=== PATIENT | female | born 1985 | race Caucasian/White ===

== ENCOUNTER 2017-07-18 06:39 | Emergency (ER) | payer OTHER ==
[2017-07-18 07:07] LABS: Bilirubin Negative (Negative); Blood, Urine Negative (Negative); Clarity CLOUDY (Clear); Glucose, Urine (Dipstick) Negative (Negative); Leukocyte Negative (Negative); Nitrite Negative (Negative); Protein, Urine (Dipstick) Negative (Neg-Trace); Specific Gravity, Urine 1.027 (1.002-1.036); Urobilinogen 0.2 mg/dL (0.2-1.0)
[2017-07-18 07:12] LABS: Pregnancy Test - Urine (BHCG) Negative (Negative); Pregu Control Background? CLEAR/WHITE (CLR/WHITE); Pregu Control Bar Appear? YES (CONTROL BAR); Specific Gravity 1.027 (1.002-1.036)
[2017-07-18 07:24] LABS: #Eosinphils 0.1 thou/uL (0.0-0.7); #Lymphocytes 0.6 thou/uL (1.20-3.40); #Monocytes 0.3 thou/uL (0.11-0.59); #Neutrophils 11.3 thou/uL (1.40-6.50); %Basophils 0.2 % (0.0-1.0); %Eosinophils 0.5 % (0.0-10.0); %Lymphocytes 4.6 % (21.0-51.0); %Monocytes 2.2 % (0.0-10.0); %Neutrophils 92.6 % (42.0-75.0); Hemoglobin 14.4 g/dL (12.0-16.0); Mean Corpuscular HGB CONC 32.7 g/dL (32.0-36.0); Mean Corpuscular Hemoglobin 29.9 pg (27.0-31.0); Mean Corpuscular Volume 91.3 fl (81.0-99.0); Platelet Count 258 thou/uL (130-400); RBC Distribution Width 12.6 % (11.5-14.5); Red Blood Cell (RBC) Count 4.83 mill/uL (4.20-5.40); White Blood Cell (WBC) Count 12.2 thou/uL (4.8-10.8)
[2017-07-18 07:39] LABS: ALT (SGPT) 13 U/L (8-55); AST (SGOT) 16 U/L (5-34); Albumin 4.4 g/dL (3.5-5.0); Alkaline Phosphatase 86 U/L (40-150); Anion Gap 14 mmol/L (10-20); BUN (Urea Nitrogen) 15 mg/dL (7.0-18.7); Bilirubin, Total 0.8 mg/dL (0.2-1.2); Calc. Creatinine Clearance 0 mL/min (70-130); Calcium 9.4 mg/dL (7.8-10.44); Carbon Dioxide 18 mmol/L (22-29); Chloride 108 mmol/L (98-107); Estimated GFR-MDRD 79; Globulin 3.7 g/dL (2.4-3.5); Glucose 107 mg/dL (70-105); Lipase 18 U/L (8-78); Potassium 4.7 mmol/L (3.5-5.1); Protein, Total 8.1 g/dL (6.0-8.3); Sodium 135 mmol/L (136-145)
[2017-07-18] MEDS ORDERED: Ondansetron HCl/PF 4 MG/2 ML Vial ONE (09:12)
[2017-07-18] MEDS ORDERED: Ketorolac Tromethamine 30 MG/ML VIAL ONE (09:12)
--- NOTE | 2017-07-18 10:22 | ULT ---
EXAM: RIGHT UPPER QUADRANT ULTRASOUND: COMPARISON: 01/03/17. HISTORY: Right upper quadrant pain. Nausea. Vomiting. TECHNIQUE: Utilizing a multihertz transducer, sonographic imaging of the right upper quadrant was performed in a longitudinal and transverse plane. FINDINGS: Suboptimal evaluation of the pancreas due to bowel gas. Hepatic parenchyma has a normal echotexture. No hepatic masses or intrahepatic biliary dilatation. Contour of the hepatic margin is maintained. Right hepatic lobe measures 18 cm. Main portal vein is patent. Appropriate direction of flow. Common bile duct diameter is 0.3 cm. Visualized aorta has a normal caliber. No sonographic evidence of cholelithiasis, gallbladder wall thickening, or cholecystic fluid. Gallbl adder is slightly contracted likely due to nonfasting state. The right kidney has a normal cortical echotexture. There is mild renal cortical thinning. No hydro nephrosis. The right kidney measures 3.9 x 3.8 x 9.5 cm. IMPRESSION: No sonographic evidence of cholelithiasis or cholecystitis. If there is concern, consider HIDA scan. POS: [facility]
== END 2017-07-18 11:30 | disposition home or self-care (01) ==
LOC: ERS 06:39
DX: R10.13 Epigastric pain (principal); R11.2 Nausea with vomiting, unspecified; F32.9 Major depressive disorder, single episode, unspecified
CPT/HCPCS: 36415; 76705; 80053; 81003; 81025; 83690; 85025; 96361; 96374; 96375; J1885; J2405

== ENCOUNTER 2017-10-28 13:40 | Emergency (ER) | payer OTHER ==
[2017-10-28 14:39] LABS: #Lymphocytes 0.5 thou/uL (1.20-3.40); #Monocytes 0.2 thou/uL (0.11-0.59); #Neutrophils 12.8 thou/uL (1.40-6.50); %Basophils 0.1 % (0.0-1.0); %Eosinophils 0.2 % (0.0-10.0); %Lymphocytes 3.5 % (21.0-51.0); %Monocytes 1.6 % (0.0-10.0); %Neutrophils 94.7 % (42.0-75.0); Hemoglobin 15.3 g/dL (12.0-16.0); Mean Corpuscular HGB CONC 33.8 g/dL (32.0-36.0); Mean Corpuscular Hemoglobin 30.1 pg (27.0-31.0); Mean Corpuscular Volume 89.1 fl (81.0-99.0); Platelet Count 320 thou/uL (130-400); RBC Distribution Width 12.5 % (11.5-14.5); Red Blood Cell (RBC) Count 5.08 mill/uL (4.20-5.40); White Blood Cell (WBC) Count 13.5 thou/uL (4.8-10.8)
[2017-10-28 15:00] LABS: ALT (SGPT) 17 U/L (8-55); AST (SGOT) 15 U/L (5-34); Albumin 4.7 g/dL (3.5-5.0); Alkaline Phosphatase 91 U/L (40-150); Anion Gap 12 mmol/L (10-20); BUN (Urea Nitrogen) 15 mg/dL (7.0-18.7); Bilirubin, Total 0.8 mg/dL (0.2-1.2); Calc. Creatinine Clearance 0 mL/min (70-130); Calcium 9.7 mg/dL (7.8-10.44); Carbon Dioxide 26 mmol/L (22-29); Chloride 107 mmol/L (98-107); Estimated GFR-MDRD 67; Globulin 3.7 g/dL (2.4-3.5); Glucose 106 mg/dL (70-105); Protein, Total 8.4 g/dL (6.0-8.3); Sodium 141 mmol/L (136-145)
[2017-10-28] MEDS ORDERED: Ondansetron ODT 4 MG TAB ONE (15:58)
[2017-10-28 16:08] LABS: Bilirubin Negative (Negative); Blood, Urine Trace (Negative); Clarity TURBID (Clear); Glucose, Urine (Dipstick) Negative (Negative); Leukocyte Negative (Negative); Nitrite Negative (Negative); Protein, Urine (Dipstick) Trace mg/dL (Neg-Trace); Specific Gravity, Urine 1.031 (1.002-1.036); Urobilinogen 0.2 mg/dL (0.2-1.0); pH, Urine 5.5 (5.0-9.0)
[2017-10-28 16:09] LABS: Pregnancy Test - Urine (BHCG) Negative (Negative); Pregu Control Background? CLEAR/WHITE (CLR/WHITE); Pregu Control Bar Appear? YES (CONTROL BAR); Specific Gravity 1.031 (1.002-1.036)
[2017-10-28] MEDS ORDERED: Morphine 4 MG/ML VIAL ONE (16:09)
[2017-10-28 16:10] LABS: Bacteria/HPF None Seen HPF (None Seen); Hyaline Casts/LPF 0-3 HYALINE CAST LPF (0-3 Hyaline); Pathc Cast-AUWi Flag 0.14 (0-2.49); RBC/HPF 0-3 HPF (0-3); WBC/HPF 0-3 HPF (0-3)
--- NOTE | 2017-10-28 17:23 | ULT ---
RIGHT UPPER QUADRANT ULTRASOUND: Date: 10/28/17 HISTORY: Epigastric pain. Abdominal pain. FINDINGS: Multiple longitudinal and transverse images of the right upper quadrant of the abdomen obtained using a multihertz curvilinear transducer. Real-time, color flow, and spectral waveform Doppler analysis u sed to evaluate the right upper quadrant. The liver is unremarkable with no evidence of masses or lesions seen. Visualized portion of the pancr eas is unremarkable. No evidence of intrahepatic biliary dilatation is seen. Common bile duct is of normal size measuring 3.9 mm. The gallbladder is unremarkable. No evidence of gallstones seen. No evidence of pericholecyst ic fluid seen. No evidence of ascites seen. The right kidney is unremarkable, with no evidence of masses or lesions. [id number] measurement franck sures 9.3 cm. IMPRESSION: Normal right upper quadrant ultrasound. Right upper quadrant ultrasound has not significantly changed since the previous comparison ultrasoun d of the right upper quadrant from 07/18/17. POS: [facility]
[2017-10-28] MEDS ORDERED: HYDROcodone/Acetaminophen 10/325 mg Tablet ONE (19:33)
== END 2017-10-28 19:43 | disposition home or self-care (01) ==
LOC: ERS 13:40
DX: K82.8 Other specified diseases of gallbladder (principal); F32.9 Major depressive disorder, single episode, unspecified
CPT/HCPCS: 36415; 76705; 80053; 81003; 81015; 81025; 83690; 85025; 96361; 96374; J2270; Q0162

== ENCOUNTER 2017-11-12 08:30 | Outpatient (CLI) | payer OTHER ==
--- NOTE | 2017-11-12 13:11 | NM ---
HEPATOBILIARY SCAN: INDICATION: Right upper quadrant pain. FINDINGS: The patient was given 5 mCi of Technetium labeled mebrofenin IV. Sequential images were obtained. The liver shows normal activity. The gallbladder begins to visualize by 10 minutes. Bile duct activ ity is seen. Intestinal activity is confirmed. The patient was given oral fatty meal challenge with 8 ounces of ensure. The gallbladder ejection fraction was recorded at 15%. IMPRESSION: 1. Normal visualization of the gallbladder. 2. Decreased gallbladder ejection fraction. POS: [facility]
== END 2017-11-12 08:31 | disposition home or self-care (01) ==
LOC: NM 08:30
PROVIDERS: ATTEND Family Medicine
DX: R10.11 Right upper quadrant pain (principal)
CPT/HCPCS: 78227; A9537

== ENCOUNTER 2017-11-14 06:48 | Day surgery (SDC) | payer OTHER ==
--- NOTE | 2017-11-13 10:19 | HP ---
HISTORY OF PRESENT ILLNESS: Alejandra Duran is a 31-year-old female who presents to the emergency room s georgette Fitzpatrick for epigastric right upper quadrant pain. Ultrasound was normal. Liver function test s, CBC normal. She had a HIDA scan this morning with 15% ejection fraction. Ensure reproduced her d iscomfort. She has been having three months episodic epigastric pain. She is referred by Dr. Alberto echols. ALLERGIES: None. TOBACCO: None. ALCOHOL: Socially, rarely. MEDICATIONS: None routinely. PAST SURGICAL HISTORY: ORIF ankle, bilateral tubal ligation, tonsillectomy. PAST MEDICAL HISTORY: Noncontributory. 3, para 3. REVIEW OF SYSTEMS: Ten-point noncontributory. PHYSICAL EXAMINATION: VITAL SIGNS: Blood pressure 112/78, pulse 74, temperature 98.8 degrees. HEAD, EYES, EARS, NOSE AND THROAT: Unremarkable. LUNGS: Clear to auscultation. CARDIAC: Regular rate and rhythm without murmur or gallop. ABDOMEN: Soft. Mild tenderness in epigastric, right upper quadrant, no guarding, rebound. EXTREMITIES: Unremarkable. ASSESSMENT AND PLAN: Biliary colic, acalculous cholecystitis, biliary dyskinesia. Recommend laparos copic video cholecystectomy. Risk of infection, bleeding, visceral and biliary injury explained, she consents.
[2017-11-13 13:44] VITALS: BMI 36.0
[2017-11-14] MEDS ORDERED: Scopolamine 1.5 mg/72 hour Patch ONE (07:48)
[2017-11-14] MEDS ORDERED: Ketorolac Tromethamine 30 MG/ML VIAL ONE (07:48)
[2017-11-14] MEDS ORDERED: CEFAZOLIN/Water 2 GM/20 ML SYRINGE ONE (08:49)
[2017-11-14] MEDS ORDERED: Bupivacaine HCl 0.5%/Epinephrine 1:200,000/PF 30 ml Vial ONE (09:10)
[2017-11-14] MEDS ORDERED: Fentanyl 100 MCG/2 ML VIAL ONE ×3 (09:15→11:05)
[2017-11-14] MEDS ORDERED: Meperidine HCl/PF 25 MG/ML VIAL ONE (10:19)
[2017-11-14] MEDS ORDERED: Promethazine HCl 25 MG/ML VIAL ONE (10:28)
[2017-11-14] MEDS ORDERED: HYDROcodone/Acetaminophen 5/325 mg Tablet ONE (13:30)
[2017-11-14] MEDS ORDERED: Ondansetron HCl/PF 4 MG/2 ML Vial ONE (14:51)
[2017-11-14] MEDS ORDERED: ePHEDrine/0.9% NaCl/PF SYRINGE 50 mg/10 ml ONE (14:51)
[2017-11-14] MEDS ORDERED: Glycopyrrolate 0.2 MG/ML 5 ML SYRINGE ONE (14:51)
[2017-11-14] MEDS ORDERED: Dexamethasone 20 MG/5 ML VIAL ONE (14:51)
[2017-11-14] MEDS ORDERED: PROPOFOL 200 MG/20 ML VIAL ONE (14:51)
[2017-11-14] MEDS ORDERED: Lidocaine 1% PF 5 ML VIAL ONE (14:51)
--- NOTE | 2017-11-14 19:19 | OP ---
DATE OF OPERATION: 11/14/2017 PREOPERATIVE DIAGNOSES: Chronic acalculous cholecystitis, head normal gallbladder ejection fraction. POSTOPERATIVE DIAGNOSES: Chronic acalculous cholecystitis, head normal gallbladder ejection fraction . PROCEDURE PERFORMED: Laparoscopic video cholecystectomy. Note, normal liver. ANESTHESIA: General anesthesia, local 0.5% Marcaine with epinephrine 30 mL. DESCRIPTION OF PROCEDURE: The patient was taken to the operating room where under general anesthesia , abdomen was prepared with ChloraPrep, draped in routine fashion. Local anesthetic infiltrated into skin and subcutaneous tissue about each port site. Infraumbilical incision was made and pneumoperit oneum to 15 mmHg obtained with the Veress needle, replacing it with a 5 port and video laparoscope in serted. Right subxiphoid incision was made and 11 port placed. Right subcostal incision was made mi d clavicular anterior axillary lines and 5 ports placed. Fundus of gallbladder grasped and reflected cephalad. Infundibulum grasped and reflected laterally. Cystic artery and duct dissected free. Cr itical view obtained. Cystic artery and duct doubly clipped proximally, divided, and gallbladder dis sected free from the liver bed obtaining good hemostasis prior to division of final peritoneal attach ments. Gallbladder and contents removed and submitted to Pathology. Good hemostasis ensured with ca utery. Pneumoperitoneum evacuated, irrigant evacuated. All instruments removed and all skin incisio ns approximated with interrupted subdermal 4-0 Monocryl and DermaGlue applied.
== END 2017-11-14 14:19 | disposition home or self-care (01) ==
LOC: SDC 06:48
PROVIDERS: ATTEND Specialist
PROC: 0FT44ZZ Resection of Gallbladder, Percutaneous Endoscopic Approach (ICD-10-PCS; principal; 2017-11-14)
DX: K81.1 Chronic cholecystitis (principal)
CPT/HCPCS: 88304; 96374; J0131; J0670; J1100; J1885; J2001; J2175; J2405; J2550; J2704; J3010

== ENCOUNTER 2018-04-12 18:06 | Emergency (ER) | payer OTHER ==
[2018-04-12] MEDS ORDERED: Ibuprofen 200 MG TAB ONE (18:57)
--- NOTE | 2018-04-12 20:14 | RAD ---
THREE VIEWS RIGHT WRIST: 04/12/18 HISTORY: Fall with pain. AP, lateral and oblique views right wrist is obtained. No evidence of right wrist fractures, subluxations or bony lesions seen. IMPRESSION: Normal three views right wrist. POS: [facility]
--- NOTE | 2018-04-12 20:49 | RAD ---
THREE VIEWS RIGHT HAND: 04/12/18 HISTORY: Pain. AP, lateral and oblique views right hand obtained. Three views right hand demonstrates no evidence of right hand fractures, subluxations or bony lesion s. No evidence of acute or chronic bony abnormalities seen. The scaphoid is unremarkable. If there kaba s been significant trauma and there is concern for a scaphoid fracture, repeat radiograph in 7 to 10 days may be of use. IMPRESSION: Normal three views right hand. POS: [facility]
== END 2018-04-12 19:00 | disposition home or self-care (01) ==
LOC: ERS 18:06
DX: M79.644 Pain in right finger(s) (principal); M25.531 Pain in right wrist

== ENCOUNTER 2018-12-30 09:13 | Emergency (ER) | payer OTHER ==
[2018-12-30] MEDS ORDERED: Ondansetron PF 4 MG/2 ML Vial ONE (09:52)
[2018-12-30 09:54] LABS: #Eosinphils 0.1 thou/uL (0.0-0.7); #Lymphocytes 2.2 thou/uL (1.20-3.40); #Monocytes 0.5 thou/uL (0.11-0.59); #Neutrophils 8.2 thou/uL (1.40-6.50); %Basophils 0.4 % (0.0-1.0); %Eosinophils 1.3 % (0.0-10.0); %Lymphocytes 19.8 % (21.0-51.0); %Monocytes 4.4 % (0.0-10.0); %Neutrophils 74.1 % (42.0-75.0); Mean Corpuscular HGB CONC 32.7 g/dL (32.0-36.0); Mean Corpuscular Hemoglobin 29.8 pg (27.0-31.0); Mean Corpuscular Volume 91.2 fL (78.0-98.0); Mean Platelet Volume 7.6 fL (7.4-10.4); Platelet Count 292 thou/uL (130-400); RBC Distribution Width 12.8 % (11.5-14.5); Red Blood Cell (RBC) Count 4.68 mill/uL (4.20-5.40); White Blood Cell (WBC) Count 11.1 thou/uL (4.8-10.8)
[2018-12-30 10:15] LABS: ALT (SGPT) 13 U/L (8-55); AST (SGOT) 12 U/L (5-34); Albumin 3.7 g/dL (3.5-5.0); Alkaline Phosphatase 73 U/L (40-150); Anion Gap 11 mmol/L (10-20); BUN (Urea Nitrogen) 7 mg/dL (7.0-18.7); Bilirubin, Total 0.4 mg/dL (0.2-1.2); Calc. Creatinine Clearance 0 mL/min (70-130); Calcium 8.8 mg/dL (7.8-10.44); Carbon Dioxide 23 mmol/L (22-29); Chloride 109 mmol/L (98-107); Estimated GFR-MDRD 79; Globulin 2.6 g/dL (2.4-3.5); Glucose 86 mg/dL (70-105); Lipase 52 U/L (8-78); Potassium 3.5 mmol/L (3.5-5.1); Protein, Total 6.3 g/dL (6.0-8.3); Sodium 139 mmol/L (136-145)
[2018-12-30 10:17] LABS: BHCG - Serum Negative (NEGATIVE); Pregs Control Background? CLEAR/WHITE (CLR/WHITE); Pregs Control Bar Appear? YES (CONTROL BAR)
[2018-12-30] MEDS ORDERED: Ketorolac Tromethamine 30 MG/ML VIAL ONE (10:31)
[2018-12-30] MEDS ORDERED: Morphine 4 MG/ML VIAL ONE (10:31)
--- NOTE | 2018-12-30 11:06 | CT ---
CT ABDOMEN NONCONTRAST CT PELVIS NONCONTRAST: (Urolithiasis protocol) DATE: 12/30/2018 HISTORY: 33-year-old female with left lower quadrant abdominal pain. TECHNIQUE: IV injection of iodinated contrast media: None Oral contrast media: None FINDINGS: Other than for urolithiasis, the lack of IV and oral contrast limits the evaluation. Liver: No contour abnormalities. Spleen: No splenomegaly. Pancreas: No contour abnormalities. Adrenals: No mass. Kidneys: No nephrolithiasis or overt hydronephrosis. Ureters: No calculi. Bladder: No calculi. Abdominal aorta: No aneurysm. Small bowel: No dilation. Colon: Multiple diverticula sigmoid colon. No adjacent fat stranding. Appendix: No dilation or adjacent fat stranding. Free air: None Free fluid: None IMPRESSION: 1. No acute findings. 2. Sigmoid colonic diverticulosis without diverticulitis.
[2018-12-30 11:32] LABS: Bacteria/HPF None Seen HPF (None Seen); Bilirubin Negative (Negative); Blood, Urine Negative (Negative); Clarity Clear (Clear); Glucose, Urine (Dipstick) Normal (Negative); Leukocyte 75 Leu/uL (Negative); Nitrite Negative (Negative); Protein, Urine (Dipstick) Negative (Neg-Trace); RBC/HPF 0-3 HPF (0-3); Urobilinogen Normal mg/dL (Less than 2); WBC/HPF 0-3 HPF (0-3)
[2018-12-30] MEDS ORDERED: Mag-Al 1200 mg/1200 mg/30 ML UDCUP ONE (11:37)
[2018-12-30] MEDS ORDERED: Lidocaine Viscous Sol 2% 15 ml UD Cup ONE (11:37)
== END 2018-12-30 12:41 | disposition home or self-care (01) ==
LOC: ERS 09:13
DX: K57.90 Diverticulosis of intestine, part unspecified, without perforation or abscess without bleeding (principal); N39.0 Urinary tract infection, site not specified; F32.9 Major depressive disorder, single episode, unspecified
CPT/HCPCS: 36415; 74176; 80053; 81003; 81015; 83690; 84703; 85025; 93005; 96361; 96374; 96375; J1885; J2270; J2405

== ENCOUNTER 2019-09-21 17:54 | Emergency (ER) | payer OTHER ==
[2019-09-21 18:38] LABS: #Eosinphils 0.2 thou/uL (0.0-0.7); #Lymphocytes 1.9 thou/uL (1.20-3.40); #Monocytes 0.6 thou/uL (0.11-0.59); %Basophils 0.2 % (0.0-1.0); %Eosinophils 2.2 % (0.0-10.0); %Lymphocytes 17.4 % (21.0-51.0); %Monocytes 5.2 % (0.0-10.0); Hemoglobin 14.6 g/dL (12.0-16.0); Mean Corpuscular HGB CONC 35.3 g/dL (32.0-36.0); Mean Corpuscular Hemoglobin 31.7 pg (27.0-31.0); Mean Corpuscular Volume 89.6 fL (78.0-98.0); Mean Platelet Volume 7.7 fL (7.4-10.4); Platelet Count 286 thou/uL (130-400); RBC Distribution Width 12.5 % (11.5-14.5); Red Blood Cell (RBC) Count 4.61 mill/uL (4.20-5.40); White Blood Cell (WBC) Count 10.7 thou/uL (4.8-10.8)
[2019-09-21 19:00] LABS: ALT (SGPT) 15 U/L (8-55); AST (SGOT) 13 U/L (5-34); Alkaline Phosphatase 91 U/L (40-110); Anion Gap 12 mmol/L (10-20); BUN (Urea Nitrogen) 9 mg/dL (7.0-18.7); Bilirubin, Total 0.5 mg/dL (0.2-1.2); Calc. Creatinine Clearance 0 mL/min (70-130); Calcium 8.8 mg/dL (7.8-10.44); Carbon Dioxide 20 mmol/L (22-29); Chloride 111 mmol/L (98-107); Estimated GFR-MDRD 78; Globulin 3.5 g/dL (2.4-3.5); Glucose 113 mg/dL (70-105); Potassium 3.5 mmol/L (3.5-5.1); Protein, Total 7.5 g/dL (6.0-8.3); Sodium 139 mmol/L (136-145)
--- NOTE | 2019-09-21 19:31 | RAD ---
AP CHEST: History: Sore throat, cough. FINDINGS: The lungs appear clear. No infiltrates seen. Heart and mediastinum appear normal. IMPRESSION: No evidence of infiltrate. POS: [facility]
== END 2019-09-21 20:40 | disposition home or self-care (01) ==
LOC: ERS 17:54
DX: U07.1 COVID-19 (principal); R05 Cough; R50.9 Fever, unspecified; M79.10 Myalgia, unspecified site; F32.9 Major depressive disorder, single episode, unspecified
CPT/HCPCS: 36415; 71045; 80053; 83605; 85025; 87635; 87804; 96360; U0002

== ENCOUNTER 2020-06-06 09:58 | Emergency (ER) | payer OTHER ==
[~2020-06-06 09:58] MED LIST: Iopamidol-370 76% 500 ML 1 ML ONE
[2020-06-06] MEDS ORDERED: Ondansetron PF 4 MG/2 ML Vial ONE (10:20)
[2020-06-06] MEDS ORDERED: Morphine 4 MG/ML VIAL ONE (10:20)
[2020-06-06 10:46] LABS: #Eosinphils 0.2 thou/uL (0.0-0.7); #Lymphocytes 2.1 thou/uL (1.20-3.40); #Monocytes 0.3 thou/uL (0.11-0.59); #Neutrophils 6.2 thou/uL (1.40-6.50); %Basophils 0.2 % (0.0-1.0); %Lymphocytes 24.2 % (21.0-51.0); %Monocytes 3.4 % (0.0-10.0); %Neutrophils 70.2 % (42.0-75.0); Hemoglobin 14.5 g/dL (12.0-16.0); Mean Corpuscular HGB CONC 33.7 g/dL (32.0-36.0); Mean Corpuscular Volume 89.2 fL (78.0-98.0); Mean Platelet Volume 7.7 fL (7.4-10.4); Platelet Count 317 thou/uL (130-400); RBC Distribution Width 12.5 % (11.5-14.5); Red Blood Cell (RBC) Count 4.83 mill/uL (4.20-5.40); White Blood Cell (WBC) Count 8.8 thou/uL (4.8-10.8)
[2020-06-06 11:07] LABS: ALT (SGPT) 17 U/L (8-55); AST (SGOT) 15 U/L (5-34); Albumin 3.7 g/dL (3.5-5.0); Alkaline Phosphatase 77 U/L (40-110); Anion Gap 14 mmol/L (10-20); BUN (Urea Nitrogen) 13 mg/dL (7.0-18.7); Bilirubin, Total 0.3 mg/dL (0.2-1.2); Calc. Creatinine Clearance 0 mL/min (70-130); Calcium 8.8 mg/dL (7.8-10.44); Carbon Dioxide 22 mmol/L (22-29); Chloride 108 mmol/L (98-107); Globulin 3.1 g/dL (2.4-3.5); Glucose 102 mg/dL (70-105); Potassium 3.9 mmol/L (3.5-5.1); Protein, Total 6.8 g/dL (6.0-8.3); Sodium 140 mmol/L (136-145)
[2020-06-06 11:22] LABS: Bacteria/HPF Rare-Few HPF (None Seen); Bilirubin Negative (Negative); Blood, Urine Negative (Negative); Clarity Clear (Clear); Glucose, Urine (Dipstick) Normal (Negative); Ketone, Urine 10 mg/dL (Negative); Leukocyte 75 Leu/uL (Negative); Nitrite Negative (Negative); Protein, Urine (Dipstick) Negative (Neg-Trace); RBC/HPF 0-3 HPF (0-3); Specific Gravity, Urine 1.024 (1.002-1.036); Urobilinogen Normal mg/dL (Less than 2); WBC/HPF 0-3 HPF (0-3)
[2020-06-06 11:23] LABS: Pregnancy Test - Urine (BHCG) Negative (Negative); Pregu Control Background? CLEAR/WHITE (CLR/WHITE); Pregu Control Bar Appear? YES (CONTROL BAR); Specific Gravity 1.024 (1.002-1.036)
--- NOTE | 2020-06-06 11:25 | CT ---
CT OF THE ABDOMEN AND PELVIS WITH IV CONTRAST INDICATION: Lower abdominal pain and nausea COMPARISON: Prior CT the abdomen and pelvis without contrast dated December 30, 2018 FINDINGS: ABDOMEN: Lung bases: Clear Liver: No focal lesion. Gallbladder: Surgically absent Pancreas: Normal. Adrenal glands: Normal. Spleen: Normal. Kidneys and ureters: Normal. No hydronephrosis. Vasculature: Normal. Lymph nodes:No lymphadenopathy. Free fluid in abdomen:No free fluid is evident. PELVIS: Small and large bowel: There are scattered colonic diverticula without evidence of active diverticuli tis. Small bowel is of normal caliber. Appendix:Normal Bladder: Normal. Rectal and perirectal soft tissues:Normal. Reproductive structures: Normal. Free fluid in pelvis: No free fluid is evident. Lymphadenopathy pelvis: No lymphadenopathy is evident. Osseous structures: No acute osseous abnormality. No destructive osteolytic or osteoblastic lesion i s identified. There is scattered degenerative and osteoarthritic changes. Soft tissues:Normal. IMPRESSION: 1. No acute abnormality.
== END 2020-06-06 12:57 | disposition home or self-care (01) ==
LOC: EEVIPCON 09:58 → ERS 09:58
DX: R10.30 Lower abdominal pain, unspecified (principal); Z79.899 Other long term (current) drug therapy
CPT/HCPCS: 74177; 80053; 81003; 81015; 81025; 85025; 87086; 96374; 96375; J2270; J2405; Q9967

== ENCOUNTER 2020-11-13 17:16 | Emergency (ER) | payer OTHER ==
[2020-11-13 18:07] LABS: #Eosinphils 0.1 thou/uL (0.0-0.7); #Monocytes 0.4 thou/uL (0.11-0.59); #Neutrophils 6.7 thou/uL (1.40-6.50); %Basophils 0.4 % (0.0-1.0); %Eosinophils 1.1 % (0.0-10.0); %Lymphocytes 21.7 % (21.0-51.0); %Monocytes 3.9 % (0.0-10.0); %Neutrophils 72.9 % (42.0-75.0); Hemoglobin 14.6 g/dL (12.0-16.0); Mean Corpuscular HGB CONC 34.7 g/dL (32.0-36.0); Mean Corpuscular Hemoglobin 31.4 pg (27.0-31.0); Mean Corpuscular Volume 90.3 fL (78.0-98.0); Mean Platelet Volume 7.9 fL (7.4-10.4); Platelet Count 324 thou/uL (130-400); RBC Distribution Width 12.7 % (11.5-14.5); Red Blood Cell (RBC) Count 4.64 mill/uL (4.20-5.40); White Blood Cell (WBC) Count 9.2 thou/uL (4.8-10.8)
[2020-11-13 18:21] LABS: BHCG - Serum Negative (NEGATIVE); Pregs Control Background? CLEAR/WHITE (CLR/WHITE); Pregs Control Bar Appear? YES (CONTROL BAR)
[2020-11-13 18:27] LABS: ALT (SGPT) 21 U/L (8-55); AST (SGOT) 25 U/L (5-34); Albumin 4.2 g/dL (3.5-5.0); Alkaline Phosphatase 101 U/L (40-110); Anion Gap 15 mmol/L (10-20); BUN (Urea Nitrogen) 11 mg/dL (7.0-18.7); Bilirubin, Total 0.4 mg/dL (0.2-1.2); Calc. Creatinine Clearance 0 mL/min (70-130); Calcium 9.4 mg/dL (7.8-10.44); Carbon Dioxide 21 mmol/L (22-29); Chloride 107 mmol/L (98-107); Globulin 3.8 g/dL (2.4-3.5); Glucose 80 mg/dL (70-105); Potassium 4.2 mmol/L (3.5-5.1); Sodium 139 mmol/L (136-145)
[2020-11-13] MEDS ORDERED: Metoclopramide HCl 10 MG/2 ML VIAL ONE (19:03)
[2020-11-13] MEDS ORDERED: diphenhydrAMINE 50 MG/ML VIAL ONE (19:03)
== END 2020-11-13 20:20 | disposition home or self-care (01) ==
LOC: ERS 17:16
DX: R55 Syncope and collapse (principal); S00.83XA Contusion of other part of head, initial encounter; W19.XXXA Unspecified fall, initial encounter
CPT/HCPCS: 70450; 70486; 71045; 72125; 80053; 84484; 84703; 85025; 93005; 96374; 96375; J1200; J2765

== ENCOUNTER 2021-05-08 13:17 | Emergency (ER) | payer OTHER ==
[2021-05-08] MEDS ORDERED: Ondansetron PF 4 MG/2 ML Vial ONE (13:47)
[2021-05-08 14:01] LABS: #Eosinphils 0.1 thou/uL (0.0-0.7); #Lymphocytes 1.6 thou/uL (1.20-3.40); #Monocytes 0.5 thou/uL (0.11-0.59); #Neutrophils 8.7 thou/uL (1.40-6.50); %Basophils 0.2 % (0.0-1.0); %Lymphocytes 14.3 % (21.0-51.0); %Monocytes 4.3 % (0.0-10.0); %Neutrophils 80.2 % (42.0-75.0); Hemoglobin 15.4 g/dL (12.0-16.0); Mean Corpuscular HGB CONC 34.7 g/dL (32.0-36.0); Mean Corpuscular Hemoglobin 31.3 pg (27.0-31.0); Mean Platelet Volume 7.3 fL (7.4-10.4); Platelet Count 361 thou/uL (130-400); RBC Distribution Width 12.7 % (11.5-14.5); Red Blood Cell (RBC) Count 4.93 mill/uL (4.20-5.40); White Blood Cell (WBC) Count 10.9 thou/uL (4.8-10.8)
[2021-05-08 14:17] LABS: ALT (SGPT) 22 U/L (8-55); AST (SGOT) 15 U/L (5-34); Albumin 4.2 g/dL (3.5-5.0); Alkaline Phosphatase 103 U/L (40-110); Anion Gap 14 mmol/L (10-20); BUN (Urea Nitrogen) 16 mg/dL (7.0-18.7); Bilirubin, Total 0.5 mg/dL (0.2-1.2); Calc. Creatinine Clearance 0 mL/min (70-130); Calcium 9.4 mg/dL (7.8-10.44); Carbon Dioxide 22 mmol/L (22-29); Chloride 108 mmol/L (98-107); Globulin 3.9 g/dL (2.4-3.5); Glucose 93 mg/dL (70-105); Lipase 30 U/L (8-78); Potassium 3.9 mmol/L (3.5-5.1); Protein, Total 8.1 g/dL (6.0-8.3); Sodium 140 mmol/L (136-145)
[2021-05-08 14:17] LABS: Bilirubin Negative (Negative); Blood, Urine 2+ (Negative); Clarity Extra Turbid (Clear); Glucose, Urine (Dipstick) Normal (Negative); Ketone, Urine Trace mg/dL (Negative); Leukocyte 500 Leu/uL (Negative); Nitrite Negative (Negative); Protein, Urine (Dipstick) 50 mg/dL (Neg-Trace); Specific Gravity, Urine 1.043 (1.002-1.036); Squamous Epithelial Greater than 50 HPF (0-3); Urobilinogen Normal mg/dL (Less than 2); pH, Urine 5.5 (5.0-9.0)
[2021-05-08 14:23] LABS: Bacteria/HPF 2+ HPF (None Seen)
[2021-05-08] MEDS ORDERED: Pantoprazole 40 MG VIAL IVP SCH (15:15)
== END 2021-05-08 15:43 | disposition home or self-care (01) ==
LOC: ERS 13:17
DX: R11.2 Nausea with vomiting, unspecified (principal); R19.7 Diarrhea, unspecified; R10.84 Generalized abdominal pain; R10.816 Epigastric abdominal tenderness; Z79.899 Other long term (current) drug therapy
CPT/HCPCS: 80053; 81003; 81015; 83690; 85025; 96372; 96374; 96375; C9113; J0500; J2405

== ENCOUNTER 2021-10-18 10:32 | Emergency (ER) | payer BC ==
[2021-10-18] MEDS ORDERED: Cyclobenzaprine 10 MG TAB ONE (11:42)
[2021-10-18] MEDS ORDERED: Ketorolac Tromethamine 30 MG/ML VIAL ONE (11:42)
== END 2021-10-18 13:31 | disposition home or self-care (01) ==
LOC: ERS 10:32
DX: M54.12 Radiculopathy, cervical region (principal)
CPT/HCPCS: 72125; 93005; 94760; 96372; J1885

== ENCOUNTER 2022-05-14 21:22 | Emergency (ER) | payer SELFPAY ==
[2022-05-14 22:04] LABS: #Eosinphils 0.3 thou/uL (0.0-0.7); #Lymphocytes 2.7 thou/uL (1.20-3.40); #Monocytes 0.3 thou/uL (0.11-0.59); #Neutrophils 6.9 thou/uL (1.40-6.50); %Basophils 0.1 % (0.0-1.0); %Eosinophils 2.5 % (0.0-10.0); %Lymphocytes 26.9 % (21.0-51.0); %Monocytes 2.9 % (0.0-10.0); %Neutrophils 67.6 % (42.0-75.0); Hemoglobin 13.5 g/dL (12.0-16.0); Mean Corpuscular HGB CONC 34.2 g/dL (32.0-36.0); Mean Corpuscular Hemoglobin 30.8 pg (27.0-31.0); Mean Corpuscular Volume 90.1 fl (78.0-98.0); Mean Platelet Volume 7.9 fL (7.4-10.4); Platelet Count 331 10x3/uL (130-400); RBC Distribution Width 13.2 % (11.5-14.5); Red Blood Cell (RBC) Count 4.39 mill/uL (4.20-5.40); White Blood Cell (WBC) Count 10.2 10x3/uL (4.8-10.8)
[2022-05-14 22:23] LABS: BHCG - Serum Negative (NEGATIVE); Pregs Control Background? CLEAR/WHITE (CLR/WHITE); Pregs Control Bar Appear? YES (CONTROL BAR)
[2022-05-14 22:25] LABS: ALT (SGPT) 14 U/L (8-55); AST (SGOT) 12 U/L (5-34); Albumin 3.8 g/dL (3.5-5.0); Alkaline Phosphatase 87 U/L (40-110); Anion Gap 12 mmol/L (10-20); BUN (Urea Nitrogen) 8 mg/dL (7.0-18.7); Bilirubin, Total 0.2 mg/dL (0.2-1.2); Calc. Creatinine Clearance 0 mL/min (70-130); Carbon Dioxide 26 mmol/L (22-29); Chloride 108 mmol/L (98-107); Estimated GFR 75; Glucose 109 mg/dL (70-105); Potassium 3.8 mmol/L (3.5-5.1); Protein, Total 6.8 g/dL (6.0-8.3); Sodium 142 mmol/L (136-145)
[2022-05-15] MEDS ORDERED: Ketorolac Tromethamine 30 MG/ML VIAL ONE (01:38)
== END 2022-05-15 04:05 | disposition home or self-care (01) ==
LOC: ERS 21:22
DX: M27.2 Inflammatory conditions of jaws (principal)
CPT/HCPCS: 36415; 70487; 80053; 84703; 85025; 96374; J1885; Q9967

== ENCOUNTER 2022-10-03 12:44 | Emergency (ER) | payer BC ==
[2022-10-03] MEDS ORDERED: Dexameth. Sod Phosp. 10 MG/ML (CHEMO USE ONLY) ONE (14:15)
[2022-10-03] MEDS ORDERED: HYDROcodone/Acetaminophen 10/325 mg Tablet ONE (14:15)
[2022-10-03] MEDS ORDERED: Orphenadrine Citrate 60 MG/2 ML VIAL ONE (14:15)
[2022-10-03] MEDS ORDERED: Morphine 4 MG/ML VIAL ONE (15:20)
== END 2022-10-03 16:12 | disposition home or self-care (01) ==
LOC: ERS 12:44
DX: M54.2 Cervicalgia (principal); G43.909 Migraine, unspecified, not intractable, without status migrainosus
CPT/HCPCS: 96372; 99283; J1100; J2270; J2360

== ENCOUNTER 2025-04-13 09:22 | Emergency (ER) | payer BC ==
[2025-04-13 10:00] LABS: ALT (SGPT) 13 U/L (Less than 34); AST (SGOT) 20 U/L (11-34); Albumin 3.6 g/dL (3.1-4.5); Alkaline Phosphatase 99 U/L (40-110); Anion Gap 15 mmol/L (10-20); BUN (Urea Nitrogen) 11 mg/dL (7.0-18.7); Bilirubin, Total 0.5 mg/dL (0.3-1.2); Calc. Creatinine Clearance 0 mL/min (70-130); Calcium 8.7 mg/dL (7.8-10.44); Carbon Dioxide 20 mmol/L (22-29); Chloride 108 mmol/L (98-107); Globulin 3.7 g/dL (2.4-3.5); Glucose 106 mg/dL (70-105); Magnesium 2.0 mg/dL (1.6-2.6); Potassium 3.7 mmol/L (3.5-5.1); Sodium 139 mmol/L (136-145)
[2025-04-13] MEDS ORDERED: Aspirin Chewable 81 MG TAB ONE (10:02)
[2025-04-13 10:07] LABS: #Basophils 0.03 10x3/uL (0.0-0.2); #Eosinophils 0.11 10x3/uL (0.0-0.7); #Monocytes 0.36 10x3/uL (0.11-0.59); #Neutrophils 5.60 10x3/uL (1.40-6.50); %Basophils 0.4 % (0.0-1.0); %Eosinophils 1.4 % (0.0-10.0); %Lymphocytes 21.8 % (21.0-51.0); %Monocytes 4.6 % (0.0-10.0); %Neutrophils 71.4 % (42.0-75.0); Hematocrit 38.8 % (36.0-47.0); Hemoglobin 12.6 g/dL (12.0-16.0); Mean Corpuscular Hemoglobin 27.8 pg (27.0-31.0); Mean Corpuscular Volume 85.7 fL (78.0-98.0); Platelet Count 355 10x3/uL (130-400); Red Blood Cell (RBC) Count 4.53 mill/uL (4.20-5.40); White Blood Cell (WBC) Count 7.84 10x3/uL (4.8-10.8)
== END 2025-04-13 12:48 | disposition home or self-care (01) ==
LOC: ERS 09:22
DX: R07.89 Other chest pain (principal); R00.2 Palpitations; R00.0 Tachycardia, unspecified
CPT/HCPCS: 36415; 71046; 80053; 83690; 83735; 83880; 84443; 84484; 85025; 85379; 93005; 94760